=== PATIENT | female | born 1985 | race Caucasian/White ===

== ENCOUNTER → 2023-10-26 | Outpatient (REF) | payer OTHER, SELFPAY | LOC: DHSLP | PROVIDERS: ATTENDING PHYSICIAN Physician Assistant Medical | DX: G47.33 Obstructive sleep apnea (adult) (pediatric) (principal) | CPT/HCPCS: 95800 ==

== ENCOUNTER → 2025-08-20 14:22 | Outpatient (REF) | payer OTHER, SELFPAY | LOC: RCS 14:22 | PROVIDERS: ATTENDING PHYSICIAN Physician Assistant Medical | DX: R01.1 Cardiac murmur, unspecified (principal) | CPT/HCPCS: 93306 ==